=== PATIENT | male | born 1985 | race Caucasian/White ===

== ENCOUNTER 2023-06-13 01:09 | Emergency (ER) | payer OTHER ==
[~2023-06-13] VITALS: Ht 165.1 cm; Wt 100.0 kg
[2023-06-13 01:23] VITALS: BP 165/111; PULSE 81; RESP 17; TEMP 98.1; O2SAT 98
== END 2023-06-13 04:13 | disposition home or self-care (01) ==
LOC: ER 01:09
DX: S61.234A Puncture wound without foreign body of right ring finger without damage to nail, initial encounter (principal); X58.XXXA Exposure to other specified factors, initial encounter; Y93.89 Activity, other specified; Y92.89 Other specified places as the place of occurrence of the external cause; Y99.8 Other external cause status
CPT/HCPCS: 99281